=== PATIENT | male | born 2000 ===

== ENCOUNTER 2023-07-27 11:00 | Inpatient (IN) | payer MEDICAID, SELFPAY ==
[2023-07-27 11:07] VITALS: BP 160/78; PULSE 94; RESP 18; TEMP 37; O2SAT 99
[2023-07-27] MEDS: LORazepam 2 mg Tablet PO ×3 (11:16→23:05)
--- NOTE | 2023-07-27 11:17 | PC.NURSE ---
Addendum entered by Jill Mayorga LPN 07/27/23 12:02: follow up, CIWA score now a 9, moderate tremors still noted to bilateral hands, mildly anxious, cooperative with care at this time Original Note: CIWA SCORE 16--ATIVAN 2 MG GIVEN PO PER PROTOCOL, PT NEW ADMIT FROM [facility], VERBALIZED TO NURSING STAFF THAT HE IS SEVERELY WITHDRAWING FROM ALCOHOL REQUESTING MORE ATIVAN BY NAME WHEN GIVEN ATIVAN HE THEN ASKED WHAT MILLIGRAM IT WAS, STAFF TOLD HIM IT WAS 2 MG BEING GIVEN, PT THE ASKS WILL I BE GETTING IT EVERY TWO HOURS LIKE I WAS AT THE OTHER HOSPITAL? STAFF EDUCATED PATIENT THAT ATIVAN WAS PRN BASIS, WOULD BE GIVEN ACCORDING TO SYMPTOMS PRESENT
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
[2023-07-27] MEDS: LORazepam 2 mg/mL INJ 1 mL IM (13:44)
[2023-07-27 14:00] VITALS: BP 160/78; PULSE 99; RESP 18; TEMP 37; O2SAT 99
[2023-07-27] MEDS: nicotine 4 mg lozenge MUCOUS MEM ×2 (15:12→17:42)
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
[2023-07-27] MEDS: acetaminophen 325 mg Tablet 650 MG PO (17:16)
[2023-07-27] MEDS: chlordiazePOXIDE 25 mg Capsule PO (17:16)
[2023-07-27 18:46] VITALS: BP 119/70
[2023-07-27] MEDS: cloNIDine 0.1 mg Tablet PO (18:46)
[2023-07-27 19:26] VITALS: BP 109/70; PULSE 96; RESP 16; TEMP 37.2; O2SAT 97
[2023-07-27] MEDS: OLANZapine 5 mg ODT PO (19:46)
[2023-07-28 06:00] VITALS: BP 99/59; PULSE 60; RESP 14; TEMP 36.6; O2SAT 98
[2023-07-28] MEDS: LORazepam 2 mg Tablet PO (07:51)
[2023-07-28] MEDS: ondansetron 4 MG Tablet PO (07:51)
[2023-07-28 08:09] VITALS: BP 114/73
[2023-07-28] MEDS: thiamine 100 mg Tablet PO (08:09)
[2023-07-28] MEDS: cloNIDine 0.1 mg Tablet PO (08:09)
[2023-07-28] MEDS: multivitamin therapeutic Tablet 1 TAB PO (08:09)
[2023-07-28] MEDS: folic acid 1 mg Tablet PO (08:09)
--- NOTE | 2023-07-28 10:37 | PC.NURSE ---
PT CAME TO THE NURSES STATION STATING THAT IT WAS TIME FOR HIS WITHDRAWAL MEDICATION PT STATED I KNOW ITS TIME I TIME MY MEDICATIONS. THIS NURSE PERFORMED A CIWA ASSESSMENT AND THE PT SCORED A 5 AND WAS EDUCATED THAT HOW THE PROTOCOL WORKS. PT THEN BECAME AGITATED AND STATED FINE THEN IF I HAVE A SEIZURE IT IS ON YOU.
--- NOTE | 2023-07-28 11:00 | PC.NURSE ---
PT REQUESTS TO SPEAK TO LEVEL VIAL INSIDE GRINDER PT STATES I KNOW I'M DETOXING AND KNOW WHAT MY BODY NEEDS. RN SCORED PT A 5 ON CIWA AND PER PROTOCOL DOES NOT REQUIRE PHARMACEUTICAL INTERVENTION. PT WAS EVALUATED BY THIS RN AND DOES APPEAR TO HAVE MILD TREMORS AND SWEATING. THIS RN NOTIFIED DR. VALENTINO OF ABOVE INFORMATION AND PT REQUEST TO GET SOME ATIVAN. NEW ORDERS WERE RECEIVED FOR A ONE TIME DOSE OF LIBRIUM 25 MG PO NOW. PT WAS EDUCATED ON NEW ORDERS AND DOES VERBALIZE UNDERSTANDING AND THANKS THIS RN. NEW ORDERS PLACE. NICKER AND BREAKER NOTIFIED OF RESOLUTION. ALL QUESTIONS ANSWERED AND SUPPORT VOICED.
[2023-07-28] MEDS: naltrexone hcl 50 mg Tablet PO (11:08)
[2023-07-28] MEDS: chlordiazePOXIDE 25 mg Capsule PO (11:08)
[2023-07-28 14:00] VITALS: BP 105/62; PULSE 86; RESP 18; TEMP 36.6; O2SAT 99
[2023-07-28] MEDS: nicotine 4 mg lozenge MUCOUS MEM (14:13)
[2023-07-28 16:12] VITALS: BP 105/62; PULSE 86; RESP 18; TEMP 36.6; O2SAT 99
--- NOTE | 2023-07-28 16:17 | PC.NURSE ---
PT WAS INFORMED THAT HE WOULD NOT BE BEING DISCHARGED BY THE PHYSICIAN TODAY. PT WAS UPSET AND STATED THAT HE WANTED TO LEAVE AND SHOULD NOT BE HELD HERE. PT WAS EDUCATED ON THE REASONS THE PHYSICIAN BELIEVED THAT HE SHOULD STAY. PT RESISTANT TO LEARNING AND STATED THAT IM A GROWN MAN I SHOULD NOT BE HERE. THIS NURSE EDUCATED ON OPTION OF AGAINST MEDICAL ADVICE PT WAS EDUCATED ON THE HEALTH RISKS, THAT HE WOULD NOT BE RECEIVING MEDICATIONS, AND A RIDE WOULD NOT BE PROVIDED FOR PT TO GET BACK. PT VERBALIZED UNDERSTANDING AND STATED I JUST NEED TO GET THE FUCK OUT OF HERE. PT WAS PROVIDED WITH CLOTHING. PT REEDUCATED ON RISKS OF LEAVING AMA BY NURSE ELECTRODE TURNER AND FINISHER JOHN CH AND OTHER NURSE NOAH CH. PT VERBALIZED UNDERSTANDING. PT LEFT THE UNIT AT 1628 AND SIGNED AMA PAPERWORK AT 1623.
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
== END 2023-07-28 16:28 | disposition left against medical advice (07) | DRG 881 ==
PROVIDERS: Admitting Provider Psychiatry & Neurology Psychiatry; Visit Provider Psychiatry & Neurology Psychiatry
DX: F32.A Depression, unspecified (principal); R45.851 Suicidal ideations; F10.20 Alcohol dependence, uncomplicated; F43.10 Post-traumatic stress disorder, unspecified; Z91.148 Patient's other noncompliance with medication regimen for other reason; Z53.29 Procedure and treatment not carried out because of patient's decision for other reasons; Z81.3 Family history of other psychoactive substance abuse and dependence; Z81.1 Family history of alcohol abuse and dependence
CPT/HCPCS: 96372; 97150; 97161; 97165; J2060; Q0162